=== PATIENT | male | born 1960 | race Caucasian/White ===

== ENCOUNTER 2020-06-19 22:32 | Emergency (ER) | payer BC ==
[~2020-06-19] VITALS: Ht 182.9 cm; Wt 75.0 kg
[2020-06-19 22:40] VITALS: BP 156/78
[2020-06-19] MEDS ORDERED: proparacaine 0.5% ophthalmic drops 15ml EACHEYE ONE (23:20)
[2020-06-20] MEDS ORDERED: ciprofloxacin 0.3% 2.5ml ophthalmic solution RIGHTEYE SCH
== END 2020-06-19 23:53 | disposition home or self-care (01) ==
LOC: ER 22:33
DX: T15.01XA Foreign body in cornea, right eye, initial encounter (principal); X58.XXXA Exposure to other specified factors, initial encounter; Y93.89 Activity, other specified; Y92.89 Other specified places as the place of occurrence of the external cause; Y99.8 Other external cause status
CPT/HCPCS: 65220; 99284

== ENCOUNTER 2021-11-06 15:55 | Emergency (ER) | payer BC ==
[~2021-11-06] VITALS: Ht 182.9 cm; Wt 65.9 kg
[2021-11-06 16:10] VITALS: BP 126/68
[2021-11-06 16:36] LABS: BASOPHILS % (AUTO) 0.4 % (0-1); EOSINOPHILS # (AUTO) 0.1 X10'3 (0-0.9); EOSINOPHILS % (AUTO) 1.3 % (0-6); HEMATOCRIT 37.8 % (42.0-52.0); HEMOGLOBIN 12.8 g/dl (14.0-17.9); LYMPHOCYTES # (AUTO) 1.7 X10'3 (1.1-4.8); LYMPHOCYTES % (AUTO) 22.6 % (21-51); MEAN CORPUSCULAR HEMOGLOBIN 31.1 PG (27.0-31.0); MEAN CORPUSCULAR HGB CONC 33.8 g/dL (33.0-36.5); MEAN CORPUSCULAR VOLUME 91.9 FL (78-98); MEAN PLATELET VOLUME 7.3 FL (7.4-10.4); MONOCYTES # (AUTO) 0.8 X10'3 (0-0.9); MONOCYTES % (AUTO) 10.1 % (2-12); NEUTROPHILS # (AUTO) 4.9 X10'3 (1.8-7.7); NEUTROPHILS % (AUTO) 65.6 % (42-75); PLATELET COUNT 253 X10'3 (140-440); RED BLOOD COUNT 4.12 X10'6 (4.70-6.10); RED CELL DISTRIBUTION WIDTH 14.1 % (11.5-14.5); WHITE BLOOD COUNT 7.5 X10'3 (4.5-11.0)
[2021-11-06 16:51] LABS: ALANINE AMINOTRANSFERASE 32 U/L (12-78); ALBUMIN 3.9 G/DL (3.4-5.0); ALBUMIN/GLOBULIN RATIO 1.3 (1.1-1.5); ALKALINE PHOSPHATASE 52 IU/L (46-116); ANION GAP 12 (8-16); ASPARTATE AMINO TRANSFERASE 28 U/L (10-37); BILIRUBIN,TOTAL 0.3 MG/DL (0.1-1.0); BLOOD UREA NITROGEN 14 MG/DL (7-18); BUN/CREATININE RATIO 15.1 (5.4-32.0); CALCIUM 9.1 MG/DL (8.5-10.1); CHLORIDE 102 MMOL/L (99-107); CREATININE 0.93 MG/DL (0.60-1.10); GLUCOSE 94 MG/DL (70-104); POTASSIUM 4.3 MMOL/L (3.5-5.1); SODIUM 142 MMOL/L (135-145); TOTAL CARBON DIOXIDE 28.2 MMOL/L (24-32); eGFR 83 ML/MIN
--- NOTE | 2021-11-06 18:01 | NUR ---
Ambulated around the unit on O2 sat monitor. Pt did not desaturate. OSats were 96-97%.
== END 2021-11-06 18:18 | disposition home or self-care (01) ==
LOC: ER 15:55
DX: R06.02 Shortness of breath (principal); R53.1 Weakness; R19.7 Diarrhea, unspecified; F03.91 Unspecified dementia, unspecified severity, with behavioral disturbance; F31.9 Bipolar disorder, unspecified
CPT/HCPCS: 36415; 71045; 80053; 83880; 84484; 85025; 93005; 99285

== ENCOUNTER 2022-01-24 07:20 | Emergency (ER) | payer BC ==
[~2022-01-24] VITALS: Ht 177.8 cm; Wt 63.0 kg
[2022-01-24 07:25] VITALS: BP 116/75
== END 2022-01-24 09:39 | disposition home or self-care (01) ==
LOC: ER 07:21
DX: U07.1 COVID-19 (principal); F03.90 Unspecified dementia, unspecified severity, without behavioral disturbance, psychotic disturbance, mood disturbance, and anxiety; F32.9 Major depressive disorder, single episode, unspecified
CPT/HCPCS: 99281